=== PATIENT | female | born 1935 | race Caucasian/White ===

== ENCOUNTER 2019-01-04 18:53 | Emergency (ER) | payer OTHER ==
[~2019-01-04] VITALS: Ht 165.1 cm; Wt 86.2 kg
[2019-01-04 19:21] VITALS: Ht 165.1 cm; Wt 86.2 kg
[2019-01-04 20:46] LABS: microscopic required? NO
[2019-01-04 21:11] LABS: BASOPHIL % 0.6 % (0-2); PLATELET COUNT 228 x10^3mcL (130-400)
[2019-01-04 21:15] LABS: urine erythrocyte NEGATIVE (NEGATIVE)
[2019-01-04 21:18] LABS: RED CELL DISTRIBUTION WIDTH 15.8 % (11.5-14.5)
[2019-01-04 21:19] LABS: CALCIUM 8.5 mg/dL (8.5-10.1); CARBON DIOXIDE 28.9 mmol/L (21-32); CHLORIDE SERUM 106 mmol/L (98-107); CREATININE SERUM 0.8 mg/dL (0.6-1.0); GLUCOSE SERUM 131 mg/dL (74-106); POTASSIUM SERUM 3.6 mmol/L (3.5-5.1); SODIUM SERUM 144 mmol/L (136-145)
[2019-01-04 21:28] LABS: ALBUMIN 3.4 g/dL (3.4-5.0); ALKALINE PHOSPHATASE 97 U/L (46-116); ALT/SGPT 19 U/L (14-59); AST/SGOT 16 U/L (15-37); BILIRUBIN TOTAL 0.4 mg/dL (0.20-1.00); TOTAL PROTEIN, SERUM 7.4 g/dL (6.4-8.2)
[2019-01-04 21:35] LABS: C REACTIVE PROTEIN < 0.2 mg/dL (<=0.9)
[2019-01-04 21:42] LABS: T3 TOTAL 1.02 ng/mL
[2019-01-04 21:51] LABS: FREE T4 1.06 ng/dL (0.76-1.46); FREE THYROXINE INDEX 3.3 ug/dL (1.4-4.5); T4(THYROXINE) 10.5 ug/dL (4.7-13.3)
[2019-01-04 21:54] LABS: CK-MB 0.6 ng/mL (0-3.6)
[2019-01-04 22:10] LABS: ERYTHROCYTE SED RATE 41 mm/hr (0-30)
[2019-01-04 22:45] VITALS: BP 155/82
== END 2019-01-04 22:45 | disposition home or self-care (01) ==
LOC: ED 18:53
PROVIDERS: Specialist
DX: T67.5XXA Heat exhaustion, unspecified, initial encounter (principal); R11.2 Nausea with vomiting, unspecified; I10 Essential (primary) hypertension; E05.90 Thyrotoxicosis, unspecified without thyrotoxic crisis or storm; K21.9 Gastro-esophageal reflux disease without esophagitis; Z98.890 Other specified postprocedural states; X58.XXXA Exposure to other specified factors, initial encounter; Y93.89 Activity, other specified; Y92.89 Other specified places as the place of occurrence of the external cause; Y99.8 Other external cause status
CPT/HCPCS: 36600; 84439; J7030; Q0092

== ENCOUNTER 2019-02-17 13:31 | Observation (INO) | payer OTHER ==
[~2019-02-17] VITALS: Ht 165.1 cm; Wt 97.6 kg
[2019-02-17 13:38] VITALS: Ht 165.1 cm; Wt 97.6 kg
--- NOTE | 2019-02-17 13:43 | NUR ---
REC'D A 83/F IN RM 2B BIBA WITH C/O VERTIGO/DIZZINESS WITH NAUSEA 1 HR FACILITY REHAB DIRECTOR. PT DENIES SOB, CP, OR FEVER. PT AAOX4, CLEAR SPEECH, RESP E/U, IN MILD DISTRESS.
[2019-02-17 14:27] LABS: BASOPHIL % 0.6 % (0-2); PLATELET COUNT 204 x10^3mcL (130-400)
[2019-02-17 14:28] LABS: RED CELL DISTRIBUTION WIDTH 15.9 % (11.5-14.5)
[2019-02-17 14:38] LABS: CALCIUM 7.7 mg/dL (8.5-10.1); CHLORIDE SERUM 105 mmol/L (98-107); CREATININE SERUM 0.8 mg/dL (0.6-1.0); GLUCOSE SERUM 119 mg/dL (74-106); POTASSIUM SERUM 3.9 mmol/L (3.5-5.1); SODIUM SERUM 142 mmol/L (136-145)
[2019-02-17 14:44] LABS: ALKALINE PHOSPHATASE 96 U/L (46-116); ALT/SGPT 18 U/L (14-59); AST/SGOT 17 U/L (15-37); BILIRUBIN TOTAL 0.3 mg/dL (0.20-1.00); CHOLESTEROL 197 mg/dL (<200); TOTAL PROTEIN, SERUM 7.2 g/dL (6.4-8.2)
[2019-02-17 14:49] LABS: ALBUMIN 3.1 g/dL (3.4-5.0)
--- NOTE | 2019-02-17 14:54 | NUR ---
PT DESAT TO 89% PER PT HX SLEEP APNEA, PT PLACED ON 4L O2 VIA NC WITH SPO2 94% MD COONEY MADE AWARE
--- NOTE | 2019-02-17 15:21 | NUR ---
PT REMINDED TO PROVIDE URINE SPECIMEN REESE, DAUGTER AT BEDSIDE, PT IN NAD, RESP E/U, CALL LIGHT WITHIN REACH, WILL CONTINUE TO MONITOR
--- NOTE | 2019-02-17 15:45 | NUR ---
PT REPORTS NO LONGER NAUSEOUS, MECLIZINE ADMIN PER MD ORDER AND EMAR, PT IN POSITION OF COMFORT, RESPS E/U, IN NAD, DAUGHTER AT BEDSIDE
--- NOTE | 2019-02-17 16:54 | NUR ---
PT INFORMED ME SHE HAS HX PROLAPSED UTERUS "SO I HAVE TO GO A LOT AND I DON'T KNOW WHEN I HAVE TO IT JUST HAPPENS"
--- NOTE | 2019-02-17 16:55 | NUR ---
PT AMBULATORY WITH STEADY GAIT TO RESTROOM
--- NOTE | 2019-02-17 17:58 | NUR ---
PT RESTING IN POSITION OF COMFORT, RESPS E/U, DAUGHTER AT BEDSIDE, CALL LIGHT WITHIN REACH
[2019-02-17] MEDS ORDERED: AMLODIPINE BESY10 M2 PO (18:19)
[2019-02-17] MEDS ORDERED: LEVOXYL0.088 MG PO (18:19)
[2019-02-17] MEDS ORDERED: OMEPRAZOLE40 M1 PO (18:20)
[2019-02-17 19:18] VITALS: BP 148/84
[2019-02-17 19:25] VITALS: BP 148/84
--- NOTE | 2019-02-17 19:28 | NUR ---
RECEIVED PT FROM ED VIA KAYLIN. ORIENTED PT TO ROOM AND SURROUNDINGS. IV NOTED TO RH PATENT AND INTACT. INSTRUCTED PT ON THE USE OF CALL LIGHT FOR ASSISTANCE. ENDORSED PT TO PRIMARY NURSE CHELSY
--- NOTE | 2019-02-17 21:00 | NUR ---
PT RESTING COMFORTABLY IN BED. FAMILY AT BEDSIDE. NO ACUTE DISTRESS NOTED. EVEN AND UNLABORED RESPIRATIONS ON RA. MEDSURG PT. IV PATENT AND INTACT RUNNING FLUIDS PER EMAR. HX OF SLEEP APNEA, PER DR. GUERRERO RT PROTOCOL AND BIPAP AT HS. HOME MEDICATIONS CONTINUED PER DR. GUERRERO. BED IN LOWEST POSITION. SIDE RAILS UPX2. CALL LIGHT WITHIN REACH. WILL CONTINUE TO MONITOR.
[2019-02-17 21:48] VITALS: BP 148/84
--- NOTE | 2019-02-17 23:00 | NUR ---
PLACED PATIENT ONTO CPAP 5 FIO2 21%. PATIENT AWAKE AND ALERT, CONFIRMED COMFORT WITH MASK. SHOWED PATIENT HOW TO UNCLIP STRAPS TO REMOVE MASK IF NEEDED.
--- NOTE | 2019-02-18 00:28 | NUR ---
PT ASLEEP COMFORTABLY IN BED. NO ACUTE DISTRESS NOTED. EVEN AND UNLABORED RESPIRATIONS ON BIPAP. IV PATENT AND INTACT RUNNING FLUIDS PER EMAR. BED IN LOWEST POSITION. SIDE RAILS UPX2. CALL LIGHT WITHIN REACH. WILL CONTINUE TO MONITOR.
[2019-02-18 05:53] VITALS: BP 143/79
--- NOTE | 2019-02-18 06:09 | NUR ---
PT SLEPT COMFORTABLY IN INTERVALS THROUGHOUT THE SHIFT. NO ACUTE CHANGES NOTED. ALL NEEDS TENDED TO AND MET. SCHEDULED MEDICATIONS GIVEN. REFUSED ANTIVERT AT THIS TIME, NO C/O DIZZINESS OR VERTIGO AND STATES CANNOT TAKE ANY MEDICATION PRIOR TO HER THYROID MEDICATIONS. CPAP USED FOR SLEEP APNEA. IV PATENT AND INTACT RUNNING FLUIDS PER EMAR. BED IN LOWEST POSITION. SIDE RAILS UPX2. CALL LIGHT WITHIN REACH. WILL ENDORSE TO ONCOMING SHIFT.
--- NOTE | 2019-02-18 07:10 | NUR ---
RECEIVED REPORT FROM CHELSY BEST, PT IN BED IN NO ACUTE DISTRESS
--- NOTE | 2019-02-18 07:16 | NUR ---
PT IN BED, ASSISTED TO BATHROOM, VOID X 1, ASSISTED BACK TO BED, IN NO ACUTE DISTRESS, ABLE TO MAKE NEEDS KNOWN, VERBAL, PERRLA, DENIED CP/PRESSURE/MARIE, DENIED N/V/DIZZINESS, RESP EVEN, NO SOB/COUGH, CHEST RISE SYMMETRICALLY, ABD ROUND AND NON-TENDER TO TOUCH, IV PATENT AND INFUSING WELL, CPAP MASK REMOVED BY NIGHT RN, RA, PALP PULSES, CAP REFILL < 3S, ALL NEEDS ADDRESSED AT THIS TIME, SAFETY PROTOCOL FOLLWED, CONTINUE TO MONITOR
[2019-02-18 08:50] LABS: BASOPHIL % 0.7 % (0-2); PLATELET COUNT 204 x10^3mcL (130-400)
[2019-02-18 08:54] LABS: ALKALINE PHOSPHATASE 91 U/L (46-116); ALT/SGPT 12 U/L (14-59); AST/SGOT 15 U/L (15-37); BILIRUBIN TOTAL 0.5 mg/dL (0.20-1.00); CALCIUM 7.4 mg/dL (8.5-10.1); CARBON DIOXIDE 29.2 mmol/L (21-32); CHLORIDE SERUM 109 mmol/L (98-107); CREATININE SERUM 0.8 mg/dL (0.6-1.0); GLUCOSE SERUM 85 mg/dL (74-106); SODIUM SERUM 147 mmol/L (136-145); TOTAL PROTEIN, SERUM 7.1 g/dL (6.4-8.2)
[2019-02-18 08:56] LABS: ALBUMIN 2.9 g/dL (3.4-5.0)
[2019-02-18 08:57] LABS: RED CELL DISTRIBUTION WIDTH 15.2 % (11.5-14.5)
--- NOTE | 2019-02-18 09:30 | NUR ---
SEEN BY DR. GUERRERO, QUESTIONS ASKED AND ANSWERED, NO FURTHER CONCERNS NEEDED AT THIS TIME, PT IN BED W/ NO ACUTE DISTRESS, DAUGHTER AT BEDSIDE
[2019-02-18 09:34] VITALS: BP 143/79
[2019-02-18 09:38] VITALS: BP 131/73
[2019-02-18] MEDS ORDERED: MECLIZINE HYDRO25 M1 PO (09:42)
--- NOTE | 2019-02-18 13:26 | NUR ---
DC PAPER SIGNED AND KEPT IN CHART, PT MADE AWARE OF NEW PRESCRIPTION IN DC PACKAGE, SAFETY TEACHING GIVEN TO PT AND DAUGHTER, VERBALLY UNDERSTANDING, NO FURTHER CONCERNS NEEDED WHEN ASKED, IV REMOVED, IV CATH TIP INTACT, NO ACTIVE BLEEDING NOTED, PT IN NO ACUTE DISTRESS, PT ASSISTED TO LOBBY BY NURSING STAFFS, FRANCINE DROVE PT HOME
== END 2019-02-18 13:40 | disposition home health service (06) | DRG 149 ==
LOC: ED 13:31 → MU 17:58
PROVIDERS: Specialist; ADMIT Internal Medicine Pulmonary Disease
DX: R42 Dizziness and giddiness (principal); I10 Essential (primary) hypertension; H55.00 Unspecified nystagmus; E03.9 Hypothyroidism, unspecified; K21.9 Gastro-esophageal reflux disease without esophagitis; Z68.35 Body mass index [BMI] 35.0-35.9, adult
CPT/HCPCS: G0378; G0480; J2405; J7030; J7120; J8597